=== PATIENT | female | born 1985 | race Caucasian/White ===

== ENCOUNTER 2025-10-02 13:06 | Emergency (ER) | payer MEDICAID ==
[~2025-10-02] VITALS: Ht 167.6 cm; Wt 81.0 kg
[2025-10-02 13:09] VITALS: O2SAT 99
[2025-10-02 16:43] VITALS: BP 116/73; PULSE 89; RESP 16; TEMP 36.8; O2SAT 99
[2025-10-02] MEDS ORDERED: VALA100044 MT (16:50)
== END 2025-10-02 17:03 | disposition home or self-care (01) ==
LOC: ER 13:50
DX: B02.9 Zoster without complications (principal); E03.9 Hypothyroidism, unspecified
CPT/HCPCS: 99283